=== PATIENT | male | born 1975 | race Caucasian/White ===

== ENCOUNTER 2023-04-14 06:30 | Emergency (ER) | payer OTHER ==
[2023-04-14 06:47] VITALS: BP 136/83; PULSE 88; RESP 16; TEMP 98.6; BMI 35.3
[2023-04-14] MEDS ORDERED: CLINDAMYCIN HCL 300 MG CAPSULE PO ONE (07:45)
== END 2023-04-14 07:54 | disposition home or self-care (01) ==
LOC: JER 06:30
DX: L03.115 Cellulitis of right lower limb (principal)
CPT/HCPCS: 99283-25